=== PATIENT | female | born 1960 | race Caucasian/White ===

== ENCOUNTER 2017-11-28 12:31 | Day surgery (SDC) | payer BC ==
[~2017-11-28] VITALS: Ht 166.4 cm; Wt 64.6 kg
[2017-11-28 13:28] VITALS: BP 136/87; PULSE 80; RESP 18; TEMP 98.2; O2SAT 99
[2017-11-28] MEDS ORDERED: MIDAZOLAM HCL 2 MG/2 ML VIAL ONE ×2 (14:18→14:19)
[2017-11-28] MEDS ORDERED: LIDOCAINE 1%/EPINEPHrine 1:100,000 SOLN 20 ML VIAL ONE (14:19)
[2017-11-28] MEDS ORDERED: SODIUM BICARBONATE 8.4% INJ 50 ML ONE (14:19)
[2017-11-28] MEDS ORDERED: fentaNYL CITRATE 250 MCG/5 ML AMP ONE (14:19)
[2017-11-28] MEDS ORDERED: ceFAZolin INJ 1,000 MG VIAL ONE (14:59)
--- NOTE | 2017-11-28 15:01 | HHI.HP ---
History of Present Illness Chief Complaint: L LE venous insufficiency History of Present Illness 57 yo female with L LE venous insufficiency, pain and failed compression. No wounds and no history of DVT Past/Family/Social History Past Medical History seasonal allergies Past Surgical History none Social History nonsmoker Family History NC Coded Allergies: Sulfa (Sulfonamide Antibiotics) (Verified Allergy, Severe, 11/28/17) codeine (Verified Allergy, Intermediate, 11/28/17) Review of Systems Constitutional: DENIES: Diaphoretic episodes, Fatigue, Fever, Weight gain, Weight loss, Chills, Dizziness, Change in appetite, Night Sweats Physical Exam Vitals/I&O Date Time Temp Pulse Resp B/P (MAP) Pulse Ox O2 Delivery O2 Flow Rate FiO2 11/28/17 13:28 98.2 80 18 136/87 (103) 99 Neuro: alert, oriented HEENT: NC/AT Neck: no JVD Heart: reg rate Lungs: clear Vascular: L LE without rashes Extremities: no rashes duplex reviewed: L AK/BK GSV insufficiency Caprini VTE Risk Assessment Caprini VTE Risk Assessment: No/Low Risk (score <= 1) Caprini Risk Assessment Model Point Value = 1 Point Value = 2 Point Value = 3 Point Value = 5 Age 41-60 Minor surgery BMI > 25 kg/m2 Swollen legs Varicose veins or History of unexplained or recurrent spontaneous Oral contraceptives or hormone replacement Sepsis (< 1 month) Serious lung disease, including pneumonia (< 1 month) Abnormal pulmonary function Acute myocardial infarction Congestive heart failure (< 1 month) History of inflammatory bowel disease Medical patient at bed rest Age 61-74 Arthroscopic surgery Major open surgery (> 45 min) Laparoscopic surgery (> 45 min) Malignancy Confined to bed (> 72 hours) Immobilizing plaster cast Central venous access Age >= 75 History of VTE Family history of VTE Factor V Leiden Prothrombin [id number] Lupus anticoagulant Anticardiolipin antibodies Elevated serum homocysteine Heparin-induced thrombocytopenia Other congenital or acquired thrombophilia Stroke (< 1 month) Elective arthroplasty Hip, pelvis, or leg fracture Acute spinal cord injury (< 1 month) Prophylaxis Regimen Total Risk Factor Score Risk Level Prophylaxis Regimen 0-1 Low Early ambulation 2 Moderate Order ONE of the following: *Sequential Compression Device (SCD) *Heparin 5000 units SQ BID 3-4 Higher Order ONE of the following medications: *Heparin 5000 units SQ TID *Enoxaparin/Lovenox 40 mg SQ daily (WT < 150 kg, CrCl > 30 mL/min) *Enoxaparin/Lovenox 30 mg SQ daily (WT < 150 kg, CrCl > 10-29 mL/min) *Enoxaparin/Lovenox 30 mg SQ BID (WT < 150 kg, CrCl > 30 mL/min) AND/OR *Sequential Compression Device (SCD) 5 or more Highest Order ONE of the following medications: *Heparin 5000 units SQ TID (Preferred with Epidurals) *Enoxaparin/Lovenox 40 mg SQ daily (WT < 150 kg, CrCl > 30 mL/min) *Enoxaparin/Lovenox 30 mg SQ daily (WT < 150 kg, CrCl > 10-29 mL/min) *Enoxaparin/Lovenox 30 mg SQ BID (WT < 150 kg, CrCl > 30 mL/min) AND *Sequential Compression Device (SCD) Assessment and Plan Plan L GSV RFA Discharge Planning today Goyo Oscar MD Nov 28, 2017 15:01
[2017-11-28] MEDS ORDERED: LIDOCAINE HCL 2% 50 ML VIAL ONE (15:02)
--- NOTE | 2017-11-28 15:32 | HHI.PR ---
cc: Goyo Oscar MD Immediate Post Op Note Procedure Date: Nov 28, 2017 Pre Op Diagnosis: L LE venous insufficiency Post Op Diagnosis: L LE venous insufficiency Surgeon: Goyo Oscar Maintenance And Engineering Manager(s): none Procedure: L GSV RFA Findings: successful RFA, no DVT Complications: none Specimen(s) removed: none Estimated blood loss: 10mL Anesthesia: MAC Drains: None Patient to: Other (DOCU) Patient Condition: Good Implant/Devices: SEE IMPLANT LOG (if applicable) Date/Time of Procedure: SEE SURGICAL CARE RECORD Goyo Oscar MD Nov 28, 2017 15:32
--- NOTE | 2017-11-28 15:34 | CATHPROC ---
Cardio control HIS Report Study Information Study Number Admission Scheduled Start Study Start [id number] Nov 28 2017 12:31PM 11/28/2017 Nov 28 2017 2:43PM [place] Service Cath Endovascular Study Admit Source Facility Department Other [facility] - [employer] [employer] Physician and Clinical Staff Initial Goyo Marcelo Stick RollerSarah Fernandez,RN Stick Roller Art Winter,RN Recorder Elisabeth Santos BSN Scrub Garrett Ding RT(R) Scrub Dante Mackey RCIS(BS) Equipment Time Force Adjustment Supervisor Description Size Mfg Part Number Used/Scraped CATHETER, FR7 CLOSURE FAST [id number] 14:55 BUNDLE-MEDTRONIC 100CM Used RFA 100CM *[id number] 14:55 BUNDLE[employer] PACK, AGENCY SERVICE REPRESENTATIVE CLOSUREFAST CFP *[id number] Used SHEATH, FR7 CLOSURE FAST [id number] 14:55 BUNDLE[employer] 7CM Used MICROINTRODUCER *[id number] KIT, CLOSURE FAST TUMESCENT 14:55 MEDTRONIC TIK-01 *[id number] Used INFILTRATION Medication Medication Total Dose (Bolus/Oral) Medication Total Dosage/Unit 1% XYLOCAINE 50 mL FENTANYL 200 mcg VERSED 3 mg Medications (Bolus/Oral) Medication Time Given Dosage/Unit Administered By Reason 1% XYLOCAINE 11/28/2017 3:08:22 PM 10 mL Goyo Oscar 10mL 1% XYLOCAINE given in lab by Goyo Oscar via Subcutaneous. Ordered by Goyo Oscar. VERSED 11/28/2017 3:08:43 PM 3 mg Art Winter 3 mg VERSED given in lab by Art Winter RN via Peripheral IV. Ordered by Goyo Oscar. FENTANYL 11/28/2017 3:09:58 PM 200 mcg Art Winter 200 mcg FENTANYL given in lab by Art Winter RN via Peripheral IV. Ordered by Goyo Oscar. 1% XYLOCAINE 11/28/2017 3:19:20 PM 40 mL Goyo Oscar 40 mL 1% XYLOCAINE solution given in lab by Goyo Oscar via Subcutaneous to entire leg. Ordered by Goyo Oscar. Medication (Drip) Medication Time Given Dosage/Unit Concentration/Unit Diluent (ml) Solutio n ANCEF 11/28/2017 3:07:47 PM 2 g 2 g ANCEF given in lab by Art Winter, RN in Left Hand via Peripheral IV. Ordered by Goyo Oscar . IV Solutions 11/28/2017 2:55:32 PM 0 mL (IV) 500 NaCl .9 IV Solutions given in lab by Sarah Isbell, RN in Left Hand via Peripheral IV. Pump/Drip Flow = 20 ml/hr using NaCl .9. Initial Case Assessment Cardiovascular HR Rhythm NIBP Chest Pain 82 sr 143/91 0 Edema Present Skin color Skin None Normal Warm Dry Neurological State Oriented to time-place- Alert Moves all extremities person Respiration - General Respiration Rate SpO2 (%) O2 (lpm) (B/min) 17 98 0 Final Case Assessment Cardiovascular HR Rhythm NIBP Chest Pain 91 sr 125/68 0 Edema Present Skin color Skin None Normal Warm Dry Neurological State Oriented to time-place- Alert Moves all extremities person Respiration - General Respiration Rate SpO2 (%) O2 (lpm) (B/min) 15 98 0 Chronological Log Time Study Chronological Log 14:53:00 Patient arrived via Bed. 14:53:01 Patient Name, D.O.B, / Armband Verified By R.N. 14:53:02 Consent signed by the physician and the patient and verified by the [employer] staff. 14:53:03 Pre-op and post- op instructions given; patient acknowledges understanding of instructions. 14:53:04 Verbal Stimulation=2 Physical Stimulation=2 Airway=2 Respiration=2 TOTAL=8. (0=absent, 1=li mited, 2=present) 14:53:08 Patient has been NPO for More than 6Hrs. 14:53:09 Skin Breakdown-none per patient. 14:53:18 A # 20 IV was noted in the Hand (left). Grade = 0 IV Solutions given in lab by Sarah Isbell, BOBBY in Left Hand via Peripheral IV. Pump/Drip Flow = 20 ml/hr using NaCl 14:55:32 .9. 14:56:01 History and physical on the chart or being dictated. Assessment: Initial Case, HR=82 BPM, Rhythm=sr, KJWC=236/91 mmhg, Chest Pain=0, Edema=None, Col or=Normal, Skin = Warm, Dry 14:56:06 Neurological: State=Alert, Ox3, BAJWA Respiration: Resp=17 B/min, SpO2=98 %, O2=0 lpm 14:56:20 MD arrived. 14:58:34 Reference ECG taken Vitals capture started with the following parameters, Patient=Adult, Interval=5 min, Initial Pr kygmzf=938 mmHg, 14:58:54 Deflation Rate=5 mmHg, Cuff placed on Right Ankle 15:00:17 HR=90 bpm, UWGO=380/91 mmhg, SpO2=97.0 %, Resp=15 B/min, Pain=0, Adali=10, [place]=2 15:01:27 Left Lower extremity prepped with 2% chlorhexidine, and draped after a 3 min. waiting time. 15:04:35 HR=78 bpm, YYNK=350/67 mmhg, XkX3=592.0 %, Resp=20 B/min, Pain=0, Adali=10, [place]=2 15:07:22 Patient placed on 2 L NC for procedure 15:07:47 2 g ANCEF given in lab by Art Winter RN in Left Hand via Peripheral IV. Ordered by Goyo Rich. Time Out. Correct patient, correct procedure, correct physician, . Time Out Concurred by MD and individual staff in 15:08:00 procedure. 15:08:12 Case Start 15:08:22 10mL 1% XYLOCAINE given in lab by Goyo Oscar via Subcutaneous. Ordered by Stefan Oscar 15:08:42 Access site was Left saphenous Vein. 15:08:43 3 mg VERSED given in lab by Art Winter RN via Peripheral IV. Ordered by Goyo Oscar. A SHEATH, FR7 CLOSURE FAST MICROINTRODUCER 7CM was advanced into the Left Leg (lower) using the 15:09:26 Percutaneous technique. 15:09:36 HR=79 bpm, IQPH=353/59 mmhg, SpO2=99.0 %, Resp=15 B/min, Pain=0, Adali=10, [place]=2 15:09:58 200 mcg FENTANYL given in lab by Art Winter RN via Peripheral IV. Ordered by Aleida Oscar 15:12:24 A CATHETER, FR7 CLOSURE FAST RFA 100CM 100CM was advanced over a wire. contrast was used fo r injections. 15:14:29 HR=87 bpm, DOSP=476/66 mmhg, SpO2=99.0 %, Resp=15 B/min, Pain=0, Adali=9, [place]=2 40 mL 1% XYLOCAINE solution given in lab by Goyo Oscar via Subcutaneous to entire leg. Orde red by Dayne, 15:19:20 Goyo. 15:19:32 HR=88 bpm, MXXS=388/70 mmhg, SpO2=98.0 %, Resp=12 B/min, Pain=0, Adali=9, [place]=2 15:20:53 Veinous ablation in progress 15:24:31 HR=86 bpm, THKA=859/67 mmhg, SpO2=98.0 %, Resp=13 B/min, Pain=0, Adali=9, [place]=2 15:27:55 ablation complete 15:28:10 Catheter(s) removed without difficulty 15:28:51 Case End 15:28:58 Sheath removed; pressure applied to access site. 15:29:32 HR=86 bpm, EIWL=248/68 mmhg, SpO2=99.0 %, Resp=16 B/min, Pain=0, Adali=10, [place]=2 15:30:47 No case complications noted. 15:30:52 Holding Area notified of successful intervention. 15:30:53 Bedside Report will be given. Assessment: Final Case, HR=91 BPM, Rhythm=sr, FDNG=382/68 mmhg, Chest Pain=0, Edema=None, [place] r=Normal, Skin = Warm, Dry 15:31:17 Neurological: State=Alert, Ox3, BAJWA Respiration: Resp=15 B/min, SpO2=98 %, O2=0 lpm 15:31:51 Sterile dressing applied to site 15:33:43 Left lower extremity wrapped with davis bandage 15:34:21 Vitals capture stopped. End Study - Contrast Media Used In Study Contrast Total Opened (mL) Total Used (mL) Total Wasted (mL) Unspecified 0 0 0 End Study - Radiation Exposure Fluoro Time (minutes) 0.0 End Study - Sheaths Sheaths Pulled By Sheath Hold Time (min) Dante Mackey 5 End Study - Patient Disposition Complications Transferred To No [employer] Holding
--- NOTE | 2017-11-29 09:33 | MP ---
cc: Goyo Oscar MD DATE OF OPERATION: 11/28/2017 PREOPERATIVE DIAGNOSIS: Left lower extremity venous insufficiency. POSTOPERATIVE DIAGNOSIS: Left lower extremity venous insufficiency. PROCEDURE PERFORMED: Left great saphenous vein radiofrequency ablation. ATTENDING SURGEON: Goyo Oscar MD ANESTHESIA: Local with sedation. INDICATIONS FOR PROCEDURE: Ms. Bar is a very pleasant 57-year-old lady with left lower extremity venous insufficiency, who has failed compression therapy. She was taken to the operating room for venous ablation. DESCRIPTION OF PROCEDURE: Informed consent obtained from the patient. She was taken to the operating room, placed supine on the operating table. An appropriate timeout was undertaken to ensure the patient's identity, operative site and planned procedure. Administration of 2 grams of Ancef was initiated prior to skin incision, will be discontinued after single preoperative dose. Everyone in the room agreed with time out and we proceeded. Left leg was prepped and draped and with the patient in reverse Trendelenburg position, local anesthetic was infiltrated and a 21-gauge Micropuncture needle was used to access the left great saphenous vein below the knee. This was exchanged using Seldinger technique for a 7-Pakistani sheath through which the venous ClosureFast catheter was inserted and it was positioned up to 2 cm from the saphenofemoral junction, which was confirmed ultrasonographically. The patient was placed in Trendelenburg position and then the mariposa-saphenous tumescence was infiltrated and the vein was ablated without difficulty. The catheter and sheath removed and pressure held for hemostasis. An MONIQUE wrap was then applied. Groin duplex showed the patient had a patent femoral vein, without any evidence of a DVT. There were no complications. I was present, scrubbed and performed the entire procedure. MD MARYCHUY Stubbs/JULY , 07:14 PM , 07:29 PM
== END 2017-11-28 17:44 | disposition home or self-care (01) ==
LOC: HDOC 12:31 → HDIC 12:31 → HDOC 17:44
PROVIDERS: ATTEND Surgery
DX: I87.2 Venous insufficiency (chronic) (peripheral) (principal); Z88.5 Allergy status to narcotic agent; Z88.2 Allergy status to sulfonamides
CPT/HCPCS: 36475; 99152; 99153; J0690; J2250; J3010